=== PATIENT | male | born 1985 | race Caucasian/White ===

== ENCOUNTER 2021-01-20 10:31 | Outpatient (CLI) | payer OTHER ==
--- NOTE | 2021-01-20 12:42 | MRI Report ---
PROCEDURE: Lumbar Spine W/O INDICATIONS: LUMBAR RADICULOPATHY TECHNIQUE: Noncontrast sagittal T1 spin echo and T2 fast echo, sagittal STIR, axial T1 and T2 fast spin echo thr ough the lumbar spine. In cases with scoliosis, additional coronal T2 fast spin echo may be performe d. COMPARISON: None. FINDINGS: Image quality: Excellent. Alignment and Curvature: There is normal bony alignment. Bone Marrow: Marrow is of normal overall signal. No acute vertebral body compression fractures. Spinal Cord: Conus medullaris terminates at the L1-2 level. Visualized cord demonstrates normal sig nal and size. Paraspinous Soft Tissues: No paravertebral masses. T12-L1: Normal in appearance. L1-L2: Normal in appearance. L2-L3: Normal in appearance. L3-L4: Normal in appearance. L4-L5: Normal in appearance. L5-S1: The disc is desiccated with a diffuse disc bulge and a left foraminal protrusion which cause s mild left foraminal stenosis. The central canal and right foramen are patent. IMPRESSION: 1. L5-S1 degenerative disc disease with a left foraminal protrusion causing mild left foraminal steno sis. 2. No other significant disc disease at the remaining levels. Reviewed by: Bismark Mendoza on 01/20/2021 12:41 PM PDT Approved by: Bismark Mendoza on 01/20/2021 12:41 PM PDT Station ID: [id number]
== END 2021-01-20 10:32 | disposition home or self-care (01) ==
LOC: DI 10:31
PROVIDERS: ATTEND Student in an Organized Health Care Education/Training Program
DX: M51.37 Other intervertebral disc degeneration, lumbosacral region (principal); M48.07 Spinal stenosis, lumbosacral region